=== PATIENT | female | born 1970 | race Caucasian/White ===

== ENCOUNTER 2017-10-10 17:07 | Observation (INO) ==
[2017-10-10] MEDS ORDERED: Sodium Chloride 0.9% 1,000 ML PRIMARY IV ONE (17:15)
[2017-10-10 17:43] LABS: VENOUS PH 7.37 (7.32-7.42)
[2017-10-10 17:58] LABS: BASOPHILS # (AUTO) 0.01 10*3/UL; BASOPHILS % (AUTO) 0.1 % (0-1); EOSINOPHILS % (AUTO) 0.9 % (0-8); Hematocrit [HCT] 42.1 % (37.0-47.0); LYMPHOCYTES # (AUTO) 1.11 10*3/uL; MEAN CORPUSCULAR HGB CONC 33.3 g/dL (33-37); MEAN CORPUSCULAR VOLUME 93.3 FL (81-99); MEAN PLATELET VOLUME 11.1 FL (7.4-12.2); MONOCYTES # (AUTO) 0.43 10*3/UL (0.3-0.8); NEUTROPHILS # (AUTO) 9.17 10*3/UL; NEUTROPHILS % (AUTO) 84.7 % (50-80); RED BLOOD COUNT 4.51 10^6/uL (4.20-5.40)
[2017-10-10 18:08] LABS: BLOOD UREA NITROGEN 12 mg/dL (7-22); BUN/CREATININE RATIO 17.14 (6-20); PLATELET MORPHOLOGY COMMENT NORMAL MORPHOLOGY (NORM); RBC MORPHOLOGY COMMENT NORMAL MORPHOLOGY (NORM); SERUM ALBUMIN 3.7 g/dL (3.5-4.8); WBC MORPHOLOGY COMMENT NORMAL MORPHOLOGY (NORM)
--- NOTE | 2017-10-10 18:15 | EKG ---
[address] [address] Measurements Intervals [place] Rate: 97 P: 39 AL: 164 QRS: 11 QRSD: 98 T: 33 QT: 344 QTc: 398 Interpretive Statements SINUS RHYTHM No previous ECG available for comparison Electronically Signed On 10-11-17 15:33:27 MDT by Luke Sparks [email or web address]
--- NOTE | 2017-10-10 19:56 | DI ---
AP CHEST X-RAY, 10/10/2017 5:17 PM : Clinical History: Dyspnea. Previous Exam: None at this facility. There is no acute soft tissue or bony abnormality. Heart size is normal. Lungs are clear. Mediastinal structures are normal. There are no pulmonary nodules. Reading: Normal chest x-ray.
[2017-10-10] MEDS ORDERED: ACETAMINOPHEN 325 MG TABLET PO PRN (20:51)
[2017-10-10] MEDS ORDERED: LIDOCAINE W/ SODIUM BICARB 0.5 ML SYR SUBD PRN (20:51)
[2017-10-10] MEDS ORDERED: CALCIUM CARBONATE 500 MG (TUMS) CHEWABLE TABLET PO PRN (20:51)
[2017-10-10] MEDS ORDERED: Senna/Docusate Tab 1 TAB TAB PO PRN (20:51)
[2017-10-10] MEDS ORDERED: DOCUSATE 100 MG CAPSULE PO PRN (20:51)
[2017-10-10] MEDS ORDERED: LIDOCAINE HCL 2 % 10 ML JELLY URO-JECT TOPICAL PRN (20:51)
[2017-10-10] MEDS ORDERED: ONDANSETRON 4 MG/2 ML VIAL IVP PRN (20:51)
[2017-10-10] MEDS ORDERED: FLUTICASONE/SALMETEROL 100/50 UD INHALER INH SCH (21:00)
[2017-10-10] MEDS ORDERED: BENZTROPINE MESYLATE 0.5 MG PO SCH (21:00)
[2017-10-10] MEDS ORDERED: PRAZOSIN HCL 4 MG PO SCH (21:00)
[2017-10-10] MEDS ORDERED: INSULIN GLARGINE HUM REC ANLOG 22 UNIT SUBCUT SCH (21:00)
[2017-10-10] MEDS ORDERED: POLYETHYLENE GLYCOL 3350 17 GM POWDER PO PRN (21:45)
[2017-10-10] MEDS ORDERED: DEXTROSE 31 GM GEL PO PRN (21:48)
[2017-10-10] MEDS ORDERED: Insulin Sliding Scale Protocol SUBCUT PRN (21:48)
[2017-10-10] MEDS ORDERED: DEXTROSE 50%-WATER SYRINGE 50 ML SYRINGE IVP PRN (21:48)
[2017-10-10] MEDS ORDERED: Glucagon Inj Vial 1 MG/ML VIAL IM PRN (21:48)
--- NOTE | 2017-10-10 21:51 | PDOC ---
HPI - History of Present Illness Date of Service: 10/10/17 Time of Service: 21:46 Chief Complaint: lightheaded and sleepy History of Present Illness: This a 46-year-old female with multiple psychiatric issues as well as seizures and diabetes mellitus who is on insulin, who is living in a custodial management by [email or web address]. She was just recently seen by her neurologist , Dr. Olivares, in [place], [place], and her seizure medications were adjusted and she was given both clonazepam and Trileptal as new drugs to manage her seizures. She started this 2 days ago, and apparently became very dizzy and lightheaded by her description, more sleepy, and tired. Given the tired appearance of the patient the custodial sent her to the emergency room for evaluation. She was found to be hypoxic in addition to being tired and somewhat somnolent. By the time she was admitted for observation, she was alert , oriented, and provided a complete history of present illness. Aside from the start of these new medications, there were no exacerbating factors. We discussed whether or not to go off of one of them and just titrate up slowly to see if he could avoid oversedation, and she felt that stopping the clonazepam would be in her best interest at this time. She is not had any further breakthrough seizures since starting the clonazepam and Trileptal. She denied any fevers, chills, but does complain of nausea and vomiting although it has resolved tonight and she was able to hold a snack down in the emergency room. A chest x-ray was done and it was negative for any pneumonia or infection. By the time the patient was admitted, her hypoxia had resolved and she was satting 93-99% on room air. Past Medical History Medical History: 1. Multiple psychiatric problems, no right specified. 2. Seizure disorder. 3. Diabetes mellitus, insulin-dependent. 4. Hypertension. 5. Tobacco abuse. 6. Chronic pain syndrome related to back pain Surgical History: 1. Knee surgery. 2. Ankle surgery 4. 3. Back surgery 3 Pertinent Family History: She states that she has a family history of diabetes and cancer Past Social History: Smokes. Does not drink alcohol. Currently living in a custodial here managed by [email or web address] with a long-term plan of moving back to [place] near her brother. She has 1 child that is described as healthy. Tobacco Use: Current Every Day Smoker In the Past 12 Months, Have Used or Abuse Any of the Following Substance: None Alcohol Use: None Medication / Allergies Home Medications: Home Medications 3 Medication Instructions Recorded Confirmed Type Gabapentin 600 mg PO BID 09/20/17 10/10/17 History Ibuprofen 800 mg PO TID PRN 09/20/17 10/10/17 History Insulin Aspart [Novolog] 4 unit SQ QAM 09/20/17 10/10/17 History Magnesium Oxide [Magnesium] 400 mg PO DAILY 09/20/17 10/10/17 History Pantoprazole Sodium [Protonix] 40 mg PO BID 09/20/17 10/10/17 History levETIRAcetam Tab [Keppra Tab] 750 mg PO BID 09/20/17 10/10/17 History benztropine 0.5 mg tablet 0.5 mg PO BID 10/04/17 10/10/17 History buprenorphine HCl 2 mg sublingual 4 mg SL TID tab 10/04/17 10/10/17 History tablet clozapine 150 mg disintegrating 200 mg PO BID tab 10/04/17 10/10/17 History tablet docusate sodium 100 mg capsule 100 mg PO QDAY 10/04/17 10/04/17 History duloxetine 30 mg capsule,delayed 30 mg PO BID 10/04/17 10/04/17 History release glucagon (human recombinant) 1 1 mg IM ONCE 10/04/17 10/10/17 History mg/mL solution for injection insulin glargine (U-100) 100 22 unit SUBCUT BID 10/04/17 10/10/17 History unit/mL subcutaneous cartridge lidocaine 5 % topical patch 1 patch TOPICAL Q24H 10/04/17 10/10/17 History multivitamin tablet 1 tab PO QAM 10/04/17 10/10/17 History ondansetron HCl 8 mg tablet 8 mg PO BID PRN tab 10/04/17 10/10/17 History polyethylene glycol 3350 17 17 g PO PRN PRN g 10/04/17 10/10/17 History gram/dose oral powder prazosin 2 mg capsule 4 mg PO BEDTIME cap 10/04/17 10/10/17 History sennosides 8.6 mg-docusate sodium 2 tab PO QHS PRN 10/04/17 10/10/17 History 50 mg tablet sucralfate 1 gram tablet 1 g PO QID 28 Days #112 tab 10/04/17 10/10/17 Rx Oxcarbazepine [Trileptal] 300 mg PO DAILY 10/10/17 10/10/17 History Allergies/Adverse Reactions: Allergies 3 Allergy/AdvReac Type Severity Reaction Status Date / Time ketorolac [From Toradol] Allergy Intermediate SHORTNESS Verified 10/10/17 18:01 OF BREATH prochlorperazine Allergy Intermediate ITCHING Verified 10/10/17 18:01 [From Compazine] Penicillins Allergy Unknown UNKNOWN Verified 10/10/17 18:01 Review of Systems - Review of Systems All Systems: Reviewed & No Additional Complaints Except as Stated (I did a 12 point review systems and it was negative other than that discussed in history present illness with exceptions noted below.) - Musculoskeletal Musculoskeletal: REPORTS: Back Pain (Chronic) - Neurological Neurologic: REPORTS: Headache (States that she has migraine headaches) - Psychiatric Psychiatric: REPORTS: Other (His chronic psychiatric problems and states that she is looking forward to reestablishing living on her own and independently and then moving to [place], [place], to be closer to her brother.) Exam - Vitals Vital Signs: Vital Signs Temperature 96.8 F Temperature Source Temporal Artery Scan Pulse Rate [Pulse Oximeter] 95 Respiratory Rate 16 Blood Pressure [Right Arm] 118/69 Blood Pressure [Left Arm] 99/73 Pulse Ox 97 Oxygen Delivery Method Room Air Height 5 ft 7 in Weight 184 lb 8 oz - General General Appearance: No Acute Distress, Cooperative - Head Head Exam: Normal Inspection, Normocephalic, Atraumatic - Eye Eye Exam: POSITIVE: No Scleral Icterus - ENT ENT Exam: POSITIVE: Mucous Membranes Moist Additonal ENT Exam Details: Patient does have some features consistent with possible tardive dyskinesia with some tongue movements and mouth movements - Neck Neck Exam: Normal Inspection, No Tenderness, No Lymphadenopathy, No Thyromegaly , JVP is not Raised - Respiratory Respiratory Exam: POSITIVE: Clear to Auscultation - Bilaterally, Breathing Non Labored, Normal to Percussion and Palpation - Cardiovascular Cardiovascular Exam: POSITIVE: RRR, No Murmur, No Clicks, No Gallops, No Rubs, No JVD - GI/Abdominal GI/Abdominal Exam: POSITIVE: Normal Bowel Sounds, Non Tender, Non Distended, Soft - Rectal Rectal Exam: POSITIVE: Deferred - External Exam: POSITIVE: Deferred Exam: POSITIVE: Deferred - Extremities Extremities Exam: POSITIVE: No Clubbing Present, No Edema Present, No Cyanosis Present - Neurological Neurological Exam: POSITIVE: Alert, Oriented x 3, No Facial Droop, Speech Intact / Clear, Moves All Extremities Equally - Psychiatric Psychiatric Exam: POSITIVE: Anxious - Integumentary Integumentary Exam: POSITIVE: Normal Color, Warm, Dry, Intact - Central Line Examination Central Line Present on Admission: No Results - Labs CBC and BMP: 10/10/17 17:45 10/10/17 17:45 Additional Lab Results: Laboratory Results 10/10/17 10/10/17 10/10/17 Range/Units 17:34 17:45 17:45 WBC (4.8-10.8) 10^3/uL RBC (4.20-5.40) 10^6/uL Hgb (12.0-16.0) g/dL Hct (37.0-47.0) % MCV (81-99) FL MCH (27-31) PG MCHC (33-37) g/dL RDW Std Deviation (39-50) fL RDW Coeff of Lalita (11.5-14.5) % Plt Count (140-350) 10*3/uL MPV (7.4-12.2) FL Immature Gran % (Auto) (0-5) % Neut % (Auto) (50-80) % Lymph % (Auto) (10-50) % Mccone % (Auto) (5-15) % Eos % (Auto) (0-8) % Baso % (Auto) (0-1) % Immature Gran # (Auto) 10*3/UL Neut # (Auto) 10*3/UL Lymph # (Auto) 10*3/uL Mccone # (Auto) (0.3-0.8) 10*3/UL Eos # (Auto) 10*3/UL Baso # (Auto) 10*3/UL WBC Morphology Comment (NORM) Plt Morphology Comment (NORM) RBC Morph Comment (NORM) D-Dimer (0.00-0.59) mg/L VBG pH 7.37 (7.32-7.42) VBG pCO2 47 (45-55) mmHg VBG HCO3 27 H (22-26) mmol/L VBG Base Excess 2 (-2-2) MMOL/L Sodium (135-145) meq/L Potassium (3.8-5.2) meq/L Chloride (98-112) meq/L Carbon Dioxide (23-33) meq/L Anion Gap (5-20) BUN (7-22) mg/dL Creatinine (0.50-1.20) mg/dL Estimated GFR (>60 ml/min/1.73m(2)) BUN/Creatinine Ratio (6-20) Glucose (78-110) mg/dL Calculated Osmolality (267-292) mOsm/kg Lactic Acid (0.70-2.10) MMOL/L Calcium (8.7-10.7) mg/dL Magnesium 1.6 (1.6-2.4) mg/dL Total Bilirubin (0.3-1.2) mg/dL AST (8-39) IU/L ALT (9-52) IU/L Alkaline Phosphatase (38-126) IU/L Troponin I < 0.012 (< 0.040) ng/mL C-Reactive Protein 5.1 H (0.0-0.9) mg/dL NT-Pro-B Natriuret Pep 317 H (0-125) PG/ML Total Protein (6.1-8.0) g/dL Albumin (3.5-4.8) g/dL Globulin (2.50-4.10) g/dL Albumin/Globulin Ratio (1.3-2.0) mg/g Serum Alcohol < 10 (0-10) mg/dL 10/10/17 10/10/17 10/10/17 Range/Units 17:45 17:45 17:45 WBC 10.83 H (4.8-10.8) 10^3/uL RBC 4.51 (4.20-5.40) 10^6/uL Hgb 14.0 (12.0-16.0) g/dL Hct 42.1 (37.0-47.0) % MCV 93.3 (81-99) FL MCH 31.0 (27-31) PG MCHC 33.3 (33-37) g/dL RDW Std Deviation 46.7 (39-50) fL RDW Coeff of Lalita 14.1 (11.5-14.5) % Plt Count 169 (140-350) 10*3/uL MPV 11.1 (7.4-12.2) FL Immature Gran % (Auto) 0.1 (0-5) % Neut % (Auto) 84.7 H (50-80) % Lymph % (Auto) 10.2 (10-50) % Mccone % (Auto) 4.0 L (5-15) % Eos % (Auto) 0.9 (0-8) % Baso % (Auto) 0.1 (0-1) % Immature Gran # (Auto) 0.01 10*3/UL Neut # (Auto) 9.17 10*3/UL Lymph # (Auto) 1.11 10*3/uL Mccone # (Auto) 0.43 (0.3-0.8) 10*3/UL Eos # (Auto) 0.10 10*3/UL Baso # (Auto) 0.01 10*3/UL WBC Morphology Comment Normal morphology (NORM) Plt Morphology Comment Normal morphology (NORM) RBC Morph Comment Normal morphology (NORM) D-Dimer 0.37 (0.00-0.59) mg/L VBG pH (7.32-7.42) VBG pCO2 (45-55) mmHg VBG HCO3 (22-26) mmol/L VBG Base Excess (-2-2) MMOL/L Sodium 141 (135-145) meq/L Potassium 4.0 (3.8-5.2) meq/L Chloride 105 (98-112) meq/L Carbon Dioxide 27 (23-33) meq/L Anion Gap 9 (5-20) BUN 12 (7-22) mg/dL Creatinine 0.7 (0.50-1.20) mg/dL Estimated GFR > 60 (>60 ml/min/1.73m(2)) BUN/Creatinine Ratio 17.14 (6-20) Glucose 84 (78-110) mg/dL Calculated Osmolality 290.0 (267-292) mOsm/kg Lactic Acid (0.70-2.10) MMOL/L Calcium 8.8 (8.7-10.7) mg/dL Magnesium (1.6-2.4) mg/dL Total Bilirubin 0.3 (0.3-1.2) mg/dL AST 22 (8-39) IU/L ALT 28 (9-52) IU/L Alkaline Phosphatase 128 H (38-126) IU/L Troponin I (< 0.040) ng/mL C-Reactive Protein (0.0-0.9) mg/dL NT-Pro-B Natriuret Pep (0-125) PG/ML Total Protein 6.5 (6.1-8.0) g/dL Albumin 3.7 (3.5-4.8) g/dL Globulin 2.9 (2.50-4.10) g/dL Albumin/Globulin Ratio 1.20 L (1.3-2.0) mg/g Serum Alcohol (0-10) mg/dL 10/10/17 Range/Units 17:45 WBC (4.8-10.8) 10^3/uL RBC (4.20-5.40) 10^6/uL Hgb (12.0-16.0) g/dL Hct (37.0-47.0) % MCV (81-99) FL MCH (27-31) PG MCHC (33-37) g/dL RDW Std Deviation (39-50) fL RDW Coeff of Laliat (11.5-14.5) % Plt Count (140-350) 10*3/uL MPV (7.4-12.2) FL Immature Gran % (Auto) (0-5) % Neut % (Auto) (50-80) % Lymph % (Auto) (10-50) % Mccone % (Auto) (5-15) % Eos % (Auto) (0-8) % Baso % (Auto) (0-1) % Immature Gran # (Auto) 10*3/UL Neut # (Auto) 10*3/UL Lymph # (Auto) 10*3/uL Mccone # (Auto) (0.3-0.8) 10*3/UL Eos # (Auto) 10*3/UL Baso # (Auto) 10*3/UL WBC Morphology Comment (NORM) Plt Morphology Comment (NORM) RBC Morph Comment (NORM) D-Dimer (0.00-0.59) mg/L VBG pH (7.32-7.42) VBG pCO2 (45-55) mmHg VBG HCO3 (22-26) mmol/L VBG Base Excess (-2-2) MMOL/L Sodium (135-145) meq/L Potassium (3.8-5.2) meq/L Chloride (98-112) meq/L Carbon Dioxide (23-33) meq/L Anion Gap (5-20) BUN (7-22) mg/dL Creatinine (0.50-1.20) mg/dL Estimated GFR (>60 ml/min/1.73m(2)) BUN/Creatinine Ratio (6-20) Glucose (78-110) mg/dL Calculated Osmolality (267-292) mOsm/kg Lactic Acid 0.7 (0.70-2.10) MMOL/L Calcium (8.7-10.7) mg/dL Magnesium (1.6-2.4) mg/dL Total Bilirubin (0.3-1.2) mg/dL AST (8-39) IU/L ALT (9-52) IU/L Alkaline Phosphatase (38-126) IU/L Troponin I (< 0.040) ng/mL C-Reactive Protein (0.0-0.9) mg/dL NT-Pro-B Natriuret Pep (0-125) PG/ML Total Protein (6.1-8.0) g/dL Albumin (3.5-4.8) g/dL Globulin (2.50-4.10) g/dL Albumin/Globulin Ratio (1.3-2.0) mg/g Serum Alcohol (0-10) mg/dL - EKG Data -: EKG Interpreted by Me Rate: Normal EKG Shows Normal: Sinus Rhythm - Imaging Status: Image Reviewed by Me (Chest x-ray is negative on my view) Assessment and Plan - Patient Problems (1) Hypoxia Current Visit: Yes Status: Acute Code(s): R09.02 - Hypoxemia (2) Schizophrenia Current Visit: Yes Status: Chronic Code(s): F20.9 - Schizophrenia, unspecified Qualifiers: Schizophrenia type: unspecified Qualified Code(s): F20.9 - Schizophrenia, unspecified (3) Tobacco dependence Current Visit: Yes Status: Chronic Code(s): F17.200 - Nicotine dependence, unspecified, uncomplicated (4) Type 1 diabetes Current Visit: Yes Status: Chronic Code(s): E10.9 - Type 1 diabetes mellitus without complications Qualifiers: Diabetes mellitus complication status: without complication Qualified Code( s): E10.9 - Type 1 diabetes mellitus without complications (5) Seizure disorder Current Visit: Yes Status: Chronic Code(s): G40.909 - Epilepsy, unspecified , not intractable, without status epilepticus - Assessment / Plan Additional Assessment/Plan Details: Admit the patient for observation Monitor oxygen saturation and with telemetry Stop clonazepam and continue with Trileptal at this time. Patient has psychiatric follow-up on Sunday as my understanding. The patient is alert and oriented without the symptoms in the morning, I think we will discharge back to her custodial setting. Check comprehensive Metabolic panel in a.m. Given that we will not be able to provide buprenorphine tonight, I will go ahead and give hydrocodone for pain overnight but we will have the patient resume buprenorphine as soon as she can. It is not on formulary here. I discussed the above plan and the patient agreed. Currently, the patient is not hypoxic. I don't know if this was a result of clonazepam or polypharmacy. Again we'll monitor oxygen saturation. Rest criteria score for pulmonary embolism is 0, she is low risk. I don't think proceeding with a CT scan at this point will make sense. If she develops recurrent hypoxia, we need to reconsider. Also with her history of smoking, she likely may have some underlying COPD which can be explored on an outpatient basis with office spirometry.
[2017-10-10] MEDS ORDERED: Insulin Glargine SoloStar Inj 100 UNIT/ML INSULN.PEN SUBCUT SCH (22:00)
[2017-10-10] MEDS ORDERED: NICOTINE 21 MG /DAY PATCH TRANSDERM ONE (22:01)
[2017-10-10] MEDS: BUPRENORPHINE HCL 4 MG SL SCH (22:11)
[2017-10-10] MEDS: HYDROcodone-APAP 7.5 MG-325 MG TABLET PO PRN (22:17)
[2017-10-10] MEDS: LevETIRAcetam Tab 500 MG TABLET PO SCH (22:17)
[2017-10-10] MEDS: DULOXETINE 30 MG CAPSULE PO SCH (22:18)
[2017-10-10] MEDS: GABAPENTIN 300 MG CAPSULE PO SCH (22:18)
[2017-10-10] MEDS: PANTOPRAZOLE 40 MG TABLET PO SCH (22:18)
[2017-10-10] MEDS: BENZTROPINE 1 MG TABLET PO SCH (22:18)
[2017-10-10] MEDS: D5-1/2NS + 20mEq KCL 1,000 ML PRIMARY IV SCH (22:20)
--- NOTE | 2017-10-10 23:30 | PDOC ---
General Adult HPI - General Chief Complaint: Dyspnea Stated Complaint: low oxygen Date Seen by Provider: 10/10/17 Time Seen by Provider: 17:10 Source: POSITIVE: Patient Exam Limitations: POSITIVE: No limitations Nurse's Notes Reviewed & Considered: Yes - History of Present Illness Initial Comment: The patient is a 46-year-old female who is brought to the emergency department because of increased lethargy and confusion, decreased appetite and complaints of general malaise. She has a history of seizure disorder as well as multiple psychiatric diagnoses. She was apparently recently hospitalized at for an extended period of time. She is currently living at the correction managed by [facility] and has been there for approximately 3 weeks. She has a history of chronic back pain for which she takes Subutex and Neurontin. She also had some questionable seizure activity several weeks ago. She followed up with her neurologist in [place] earlier this week. She was apparently started on Trileptal in addition to the Keppra and Neurontin that she already takes. In addition she was given a prescription for clonazepam as needed for seizure activity which she has taken 2 doses according to her account. Since starting on the new medication she has had decreased appetite in general malaise. She states she feels like she is having a hard time adjusting to the medication. On arrival here her oxygen saturations were in the low 80s and she was placed on O2 per nasal cannula to bring her oxygen levels up into the mid-90s. She states that she has had a mild cough for the past 3 days which is occasionally productive. She does smoke approximately 1-1-1/2 packs of cigarettes per day. She also reports some vague chest pain in the left chest for several days. She denies any pain or swelling in her extremities other than her chronic right leg pain related to her back. She is a diabetic and takes insulin. Her blood sugar this morning was 118. She has been diabetic since the age of 19. Have you received a tetanus shot in the past 10 years?: Unknown - Patient Home Medications Home Medications: Home Medications Gabapentin 600 mg PO BID 09/20/17 Ibuprofen 800 mg PO TID PRN 09/20/17 Insulin Aspart [Novolog] 4 unit SQ QAM 09/20/17 Magnesium Oxide [Magnesium] 400 mg PO DAILY 09/20/17 Pantoprazole Sodium [Protonix] 40 mg PO BID 09/20/17 levETIRAcetam Tab [Keppra Tab] 750 mg PO BID 09/20/17 benztropine 0.5 mg tablet 0.5 mg PO BID 10/04/17 buprenorphine HCl 2 mg sublingual tablet 4 mg SL TID tab 10/04/17 clozapine 150 mg disintegrating tablet 200 mg PO BID tab 10/04/17 docusate sodium 100 mg capsule 100 mg PO QDAY 10/04/17 duloxetine 30 mg capsule,delayed release 30 mg PO BID 10/04/17 glucagon (human recombinant) 1 mg/mL solution for injection 1 mg IM ONCE insulin glargine (U-100) 100 unit/mL subcutaneous cartridge 22 unit SUBCUT BID 10/04/17 lidocaine 5 % topical patch 1 patch TOPICAL Q24H 10/04/17 multivitamin tablet 1 tab PO QAM 10/04/17 ondansetron HCl 8 mg tablet 8 mg PO BID PRN tab 10/04/17 polyethylene glycol 3350 17 gram/dose oral powder 17 g PO PRN PRN g 10/04/17 prazosin 2 mg capsule 4 mg PO BEDTIME cap 10/04/17 sennosides 8.6 mg-docusate sodium 50 mg tablet 2 tab PO QHS PRN 10/04/17 sucralfate 1 gram tablet 1 g PO QID 28 Days #112 tab 10/04/17 Oxcarbazepine [Trileptal] 300 mg PO DAILY 10/10/17 - Patient Allergies Allergies/Adverse Reactions: Allergies 3 Allergy/AdvReac Type Severity Reaction Status Date / Time ketorolac [From Toradol] Allergy Intermediate SHORTNESS Verified 10/10/17 18:01 OF BREATH prochlorperazine Allergy Intermediate ITCHING Verified 10/10/17 18:01 [From Compazine] Penicillins Allergy Unknown UNKNOWN Verified 10/10/17 18:01 Past Medical History - heen HEENT History: Denies History Cardiovascular History: Denies History Respiratory History: Pneumonia Gastrointestinal History: Denies History Genitourinary History: Denies History Endocrine History: Type 1 Diabetes Musculoskeletal History: Fibromyalgia, Back Injury Prosthesis or Implant: No Additional Musculoskeletal History: degenerative disk disease Neurological History: Seizures Blood Disorders: Denies History Psychiatric History: Depression, Anxiety Disorders History of Sexually Transmitted Diseases: No Female Reproductive History: Denies History Obstetrical History: Denies History Cancer History: Denies History In Past Year Been Physically Harmed or Verbally Threatened: No History of MDRO: Yes History of Other Communicable Diseases: No Tobacco Use: Current Every Day Smoker In the Past 12 Months, Have Used or Abuse Any Substance: None Previous Surgical History: Yes Type / Date of Surgery: 3 back surgeries, hyst, right knee, right ankle times 4 Significant Family History: No pertinent family hx Past Medical History Reviewed: Reviewed - No Changes ROS - Limitations ROS Limitations: No Limitations Constitution: DENIES: Chills, Fever Cardiovascular: REPORTS: Denies Cardiac Symptoms Respiratory: REPORTS: Denies Resp Symptoms Neurological: DENIES: Headache Gastrointestinal: REPORTS: Nausea, Other (Decreased appetite). DENIES: Vomitting Endocrine: DENIES: Elevated Glucose, Low Glucose, Polydypsia Musculoskeletal: REPORTS: Denies MS Symptoms Genitourinary: REPORTS: Denies Symptoms Eyes: REPORTS: Denies Symptoms ENT: REPORTS: Denies Symptoms Skin: DENIES: Rash General Adult Exam - General Appearance General Appearance: POSITIVE: Other (The patient is awake and answers questions however she is somewhat slow to respond and her speech is mildly slurred) - HEENT HEENT: POSITIVE: Head Inspection Nml, Eyes Inspection Nml, Ears Inspection Nml, Nose Inspection Nml, Pharynx Inspect. Nml, PERRL, EOMI - Neck Neck: POSITIVE: Normal Inspection. NEGATIVE: Lymphadenopathy - Respiratory Respiratory: POSITIVE: No Respiratory Distress, Breath Sounds Normal - Cardiovascular Cardiovascular: POSITIVE: Regular Rate & Rhythm, No Murmur Peripheral Pulses: Dorsalis-pedis (R): 2+, Dorsalis-pedis (L): 2+ - Abdomen Abdomen: Soft: (All Quadrants), Denies Tenderness: (All Quadrants), No Distention: (All Quadrants) - Back Back: POSITIVE: Normal Inspection - Skin Skin: POSITIVE: Normal Color, No Rash - Extremities Extremity: Normal ROM: (All Extremities), Normal Inspection: (All Extremities) - Neurological / Psychological Neurological: POSITIVE: Oriented X3, 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 Lab Results Reviewed by Me: Yes Lab Results:: Laboratory Results 3 10/10/17 10/10/17 10/10/17 17:34 17:45 17:45 WBC RBC Hgb Hct MCV MCH MCHC RDW Std Deviation RDW Coeff of Lalita Plt Count MPV Immature Gran % (Auto) Neut % (Auto) Lymph % (Auto) [place] % (Auto) Eos % (Auto) Baso % (Auto) Immature Gran # (Auto) Neut # (Auto) Lymph # (Auto) [place] # (Auto) Eos # (Auto) Baso # (Auto) WBC Morphology Comment Plt Morphology Comment RBC Morph Comment D-Dimer VBG pH 7.37 VBG pCO2 47 VBG HCO3 27 H VBG Base Excess 2 Sodium Potassium Chloride Carbon Dioxide Anion Gap BUN Creatinine Estimated GFR BUN/Creatinine Ratio Glucose Calculated Osmolality Lactic Acid Calcium Magnesium 1.6 Total Bilirubin AST ALT Alkaline Phosphatase Troponin I < 0.012 C-Reactive Protein 5.1 H NT-Pro-B Natriuret Pep 317 H Total Protein Albumin Globulin Albumin/Globulin Ratio Serum Alcohol < 10 3 10/10/17 10/10/17 10/10/17 17:45 17:45 17:45 WBC 10.83 H RBC 4.51 Hgb 14.0 Hct 42.1 MCV 93.3 MCH 31.0 MCHC 33.3 RDW Std Deviation 46.7 RDW Coeff of Lalita 14.1 Plt Count 169 MPV 11.1 Immature Gran % (Auto) 0.1 Neut % (Auto) 84.7 H Lymph % (Auto) 10.2 [place] % (Auto) 4.0 L Eos % (Auto) 0.9 Baso % (Auto) 0.1 Immature Gran # (Auto) 0.01 Neut # (Auto) 9.17 Lymph # (Auto) 1.11 [place] # (Auto) 0.43 Eos # (Auto) 0.10 Baso # (Auto) 0.01 WBC Morphology Comment Normal morphology Plt Morphology Comment Normal morphology RBC Morph Comment Normal morphology D-Dimer 0.37 VBG pH VBG pCO2 VBG HCO3 VBG Base Excess Sodium 141 Potassium 4.0 Chloride 105 Carbon Dioxide 27 Anion Gap 9 BUN 12 Creatinine 0.7 Estimated GFR > 60 BUN/Creatinine Ratio 17.14 Glucose 84 Calculated Osmolality 290.0 Lactic Acid Calcium 8.8 Magnesium Total Bilirubin 0.3 AST 22 ALT 28 Alkaline Phosphatase 128 H Troponin I C-Reactive Protein NT-Pro-B Natriuret Pep Total Protein 6.5 Albumin 3.7 Globulin 2.9 Albumin/Globulin Ratio 1.20 L Serum Alcohol 3 10/10/17 17:45 WBC RBC Hgb Hct MCV MCH MCHC RDW Std Deviation RDW Coeff of Lalita Plt Count MPV Immature Gran % (Auto) Neut % (Auto) Lymph % (Auto) [place] % (Auto) Eos % (Auto) Baso % (Auto) Immature Gran # (Auto) Neut # (Auto) Lymph # (Auto) [place] # (Auto) Eos # (Auto) Baso # (Auto) WBC Morphology Comment Plt Morphology Comment RBC Morph Comment D-Dimer VBG pH VBG pCO2 VBG HCO3 VBG Base Excess Sodium Potassium Chloride Carbon Dioxide Anion Gap BUN Creatinine Estimated GFR BUN/Creatinine Ratio Glucose Calculated Osmolality Lactic Acid 0.7 Calcium Magnesium Total Bilirubin AST ALT Alkaline Phosphatase Troponin I C-Reactive Protein NT-Pro-B Natriuret Pep Total Protein Albumin Globulin Albumin/Globulin Ratio Serum Alcohol CBC and BMP: 10/10/17 17:45 10/11/17 04:31 EKG Interpreted/Reviewed By Me:: Yes EKG Interpretation:: POSITIVE: Normal Sinus Rhythm, Normal Rate, Normal QRS, Normal ST/T - Patient's Progress MDM / ED Course: The patient was significantly hypoxic on arrival with oxygen saturations in the low 80s. She was placed on O2 per nasal cannula which brought her oxygen saturations up into the mid-90s. Initial venous blood gases unremarkable with normal pH. EKG shows normal sinus rhythm with no acute changes. Chest x-ray is normal per radiologist. The remainder of her blood work is essentially unremarkable with a normal d-dimer, normal troponin. At this point her symptoms and low oxygenation appears to be related to her medications. She is on multiple medications that cause sedation which is likely the cause of her current presentation. Decision was made to admit the patient for further observation and treatment. Dr. Nunez is agreed to admit the patient and the patient is in agreement with this plan. The patient is scheduled to see the psychiatrist who oversees the correction and the staff states that he plans on reviewing all of her medications. - Consult Counseled: POSITIVE: Patient, RE: DX, RE: Need for F/U Patient Care Time - Estimated PCT Patient Care Time (In Minutes): 40 Vital Signs - Recent Vital Signs Vital Signs: Vital Signs (Last 8 hours) Temp Pulse Pulse Resp BP BP Pulse Ox 10/11/17 05:23 91 10/11/17 04:26 98.1 F 76 18 113/66 96 10/11/17 03:00 77 94 10/11/17 00:27 98.1 F 90 18 115/61 91 10/10/17 23:00 92 - VS Reviewed Vital Signs Reviewed: Yes Discharge Clinical Impression: Hypoxia, Sedated due to medication, Seizure disorder Discharge Disposition: Admit to Observation Condition: Fair
[2017-10-11 05:01] LABS: BLOOD UREA NITROGEN 11 mg/dL (7-22); BUN/CREATININE RATIO 18.33 (6-20); SERUM ALBUMIN 2.9 g/dL (3.5-4.8)
[2017-10-11] MEDS: D5-1/2NS + 20mEq KCL 1,000 ML PRIMARY IV SCH ×2 (06:36→18:38)
[2017-10-11] MEDS: Insulin Lispro Flexpen 300 UNIT/3 ML INSULN.PEN SUBCUT SCH ×2 (07:49→11:42)
[2017-10-11] MEDS: HYDROcodone-APAP 7.5 MG-325 MG TABLET PO PRN (08:02)
[2017-10-11] MEDS ORDERED: DOCUSATE 100 MG CAPSULE PO SCH (09:00)
[2017-10-11] MEDS ORDERED: OXCARBAZEPINE 300 MG PO SCH ×2 (09:00→10:15)
[2017-10-11] MEDS ORDERED: Insulin Glargine SoloStar Inj 100 UNIT/ML INSULN.PEN SUBCUT SCH (09:00)
[2017-10-11] MEDS ORDERED: NICOTINE 21 MG /DAY PATCH TRANSDERM SCH (09:00)
[2017-10-11] MEDS: LevETIRAcetam Tab 500 MG TABLET PO SCH (09:01)
[2017-10-11 09:02] VITALS: TEMP 96.8
[2017-10-11] MEDS: BENZTROPINE 1 MG TABLET PO SCH (09:02)
[2017-10-11] MEDS: GABAPENTIN 300 MG CAPSULE PO SCH (09:02)
[2017-10-11] MEDS: DULOXETINE 30 MG CAPSULE PO SCH (09:02)
[2017-10-11] MEDS: PANTOPRAZOLE 40 MG TABLET PO SCH (09:02)
--- NOTE | 2017-10-11 09:10 | DI ---
GALLBLADDER AND LIVER ULTRASOUND, 10/11/2017 7:00 AM: Clinical History: Nausea and vomiting. Previous Exam: None at this facility. Technique: Scans are performed through the right upper quadrant in multiple projections. The patient was rolled from side to side and the gallbladder was balloted with the probe to facilitate visualizat ion of small gallstones. The gallbladder is only moderately well distended but has a normal wall thickness. There are no galls tones. The common bile duct measures 4 mm. The pancreas is visualized from the head to the body and i s normal. There is hepatomegaly with increased echogenicity and decreased through transmission indica ting diffuse fatty infiltration. The right kidney, IVC, and aorta are normal. Readin. The gallbladder is only moderately well distended but is otherwise normal. There is no Hair's s ign. 2. Hepatomegaly with fatty infiltration. 3. Normal right kidney, IVC, aorta, and visualized portions of the pancreas.
[2017-10-11] MEDS: BUPRENORPHINE HCL 4 MG SL SCH (09:17)
[2017-10-11] MEDS ORDERED: OXCARBAZEPINE 600 MG PO SCH (10:30)
[2017-10-11 11:35] VITALS: BP 116/71; RESP 16; O2SAT 94
--- NOTE | 2017-10-11 13:38 | DCSUMMARY ---
Hospitalization Summary Admit Date: 10/10/2017 Discharge Date: 10/11/17 Primary Diagnosis:: altered mental status, resolved. Hospital Course: This is a very pleasant 46-year-old female with several psychiatric issues and seizure disorder, who was placed on Trileptal and clonazepam recently. The patient presented with altered mental status and was also noted to be somnolent and hypoxic. Chest x-ray was negative for any infection. I hypoxia resolved very quickly as stated altered mental status with admission. The patient described being very sleepy throughout the day and she was observed overnight with no evidence of any problems on her telemetry monitoring. Her hypoxia resolves when she is awake and she does have sleep apnea by history but cannot tolerate CPAP device so I think her hypoxia is related to obstruction. We discussed with the patient options for discontinuing clonazepam and is starting Trileptal and continue to titrate that per neurology instructions. I think this would make the most sense as perhaps the clonazepam was just too sedating. Patient was agreeable to this. She has no other complaints of chest pain, shortness breath, nausea or vomiting and would like to go home. In terms of the patient's nausea and vomiting, she did not have any nausea and vomiting here. I did get an ultrasound as it was planned on an outpatient basis anyway and we did find a fatty liver. The gallbladder appeared normal. If nausea and vomiting persists I recommended the patient get a HIDA scan as an outpatient. Assessment and Plan: 1. As per discharge assessments noted 2. Disposition: Patient is discharged home. 3. Condition on discharge, stable and improved. 4. Diet: regular diet/diabetic diet 5. Activities: resume normal activities, advised to quit smoking 6. Follow-Up: 1. See Dr. West in 1 week 2. 7. Medications at the Time of Discharge: Home Medications 3 Medication Instructions Recorded Confirmed Type Gabapentin 600 mg PO BID 09/20/17 10/10/17 History Ibuprofen 800 mg PO TID PRN 09/20/17 10/10/17 History Insulin Aspart [Novolog] 4 unit SQ QAM 09/20/17 10/10/17 History Magnesium Oxide [Magnesium] 400 mg PO DAILY 09/20/17 10/10/17 History levETIRAcetam Tab [Keppra Tab] 750 mg PO BID 09/20/17 10/10/17 History benztropine 0.5 mg tablet 0.5 mg PO BID 10/04/17 10/10/17 History buprenorphine HCl 2 mg sublingual 4 mg SL TID tab 10/04/17 10/10/17 History tablet clozapine 150 mg disintegrating 200 mg PO BID tab 10/04/17 10/10/17 History tablet docusate sodium 100 mg capsule 100 mg PO QDAY 10/04/17 10/11/17 History duloxetine 30 mg capsule,delayed 30 mg PO BID 10/04/17 10/11/17 History release glucagon (human recombinant) 1 1 mg IM ONCE 10/04/17 10/10/17 History mg/mL solution for injection insulin glargine (U-100) 100 22 unit SUBCUT BID 10/04/17 10/10/17 History unit/mL subcutaneous cartridge lidocaine 5 % topical patch 1 patch TOPICAL Q24H 10/04/17 10/10/17 History multivitamin tablet 1 tab PO QAM 10/04/17 10/10/17 History ondansetron HCl 8 mg tablet 8 mg PO BID PRN tab 10/04/17 10/10/17 History polyethylene glycol 3350 17 17 g PO PRN PRN g 10/04/17 10/10/17 History gram/dose oral powder prazosin 2 mg capsule 4 mg PO BEDTIME cap 10/04/17 10/10/17 History sennosides 8.6 mg-docusate sodium 2 tab PO QHS PRN 10/04/17 10/10/17 History 50 mg tablet sucralfate 1 gram tablet 1 g PO QID 28 Days #112 tab 10/04/17 10/10/17 Rx Oxcarbazepine [Trileptal] 300 mg PO DAILY 10/10/17 10/10/17 History pantoprazole 40 mg tablet,delayed 40 mg PO BID #90 tab 10/11/17 Rx release Exam - Vitals Vital Signs: Vital Signs Vital Signs - Last Taken Temperature 96.8 F 10/11/17 11:30 Pulse Rate 68 10/11/17 11:30 Respiratory Rate 16 10/11/17 11:30 Blood Pressure 116/71 10/11/17 11:30 Pulse Ox 94 10/11/17 11:30 Height 5 ft 7 in Weight 188 lb 1.6 oz - General General Appearance: No Acute Distress, Cooperative - Head Head Exam: Normal Inspection, Normocephalic, Atraumatic - Eye Eye Exam: POSITIVE: No Scleral Icterus - ENT ENT Exam: POSITIVE: Mucous Membranes Moist - Respiratory Respiratory Exam: POSITIVE: Clear to Auscultation - Bilaterally, Breathing Non Labored - Cardiovascular Cardiovascular Exam: POSITIVE: RRR, No Murmur, No Clicks, No Gallops, No Rubs, No JVD - GI/Abdominal GI/Abdominal Exam: POSITIVE: Normal Bowel Sounds, Non Tender, Non Distended, Soft - Extremities Extremities Exam: POSITIVE: No Clubbing Present, No Edema Present, No Cyanosis Present - Neurological Neurological Exam: POSITIVE: Alert, Oriented x 3, No Facial Droop, Speech Intact / Clear, Moves All Extremities Equally Data Peritnent Studies: Laboratory Results 10/10/17 10/10/17 10/10/17 Range/Units 17:34 17:45 17:45 WBC (4.8-10.8) 10^3/uL RBC (4.20-5.40) 10^6/uL Hgb (12.0-16.0) g/dL Hct (37.0-47.0) % MCV (81-99) FL MCH (27-31) PG MCHC (33-37) g/dL RDW Std Deviation (39-50) fL RDW Coeff of Lalita (11.5-14.5) % Plt Count (140-350) 10*3/uL MPV (7.4-12.2) FL Immature Gran % (Auto) (0-5) % Neut % (Auto) (50-80) % Lymph % (Auto) (10-50) % Tyrrell % (Auto) (5-15) % Eos % (Auto) (0-8) % Baso % (Auto) (0-1) % Immature Gran # (Auto) 10*3/UL Neut # (Auto) 10*3/UL Lymph # (Auto) 10*3/uL Tyrrell # (Auto) (0.3-0.8) 10*3/UL Eos # (Auto) 10*3/UL Baso # (Auto) 10*3/UL WBC Morphology Comment (NORM) Plt Morphology Comment (NORM) RBC Morph Comment (NORM) D-Dimer (0.00-0.59) mg/L VBG pH 7.37 (7.32-7.42) VBG pCO2 47 (45-55) mmHg VBG HCO3 27 H (22-26) mmol/L VBG Base Excess 2 (-2-2) MMOL/L Sodium (135-145) meq/L Potassium (3.8-5.2) meq/L Chloride (98-112) meq/L Carbon Dioxide (23-33) meq/L Anion Gap (5-20) BUN (7-22) mg/dL Creatinine (0.50-1.20) mg/dL Estimated GFR (>60 ml/min/1.73m(2)) BUN/Creatinine Ratio (6-20) Glucose (78-110) mg/dL Calculated Osmolality (267-292) mOsm/kg Lactic Acid (0.70-2.10) MMOL/L Calcium (8.7-10.7) mg/dL Magnesium 1.6 (1.6-2.4) mg/dL Total Bilirubin (0.3-1.2) mg/dL AST (8-39) IU/L ALT (9-52) IU/L Alkaline Phosphatase (38-126) IU/L Troponin I < 0.012 (< 0.040) ng/mL C-Reactive Protein 5.1 H (0.0-0.9) mg/dL NT-Pro-B Natriuret Pep 317 H (0-125) PG/ML Total Protein (6.1-8.0) g/dL Albumin (3.5-4.8) g/dL Globulin (2.50-4.10) g/dL Albumin/Globulin Ratio (1.3-2.0) mg/g Serum Alcohol < 10 (0-10) mg/dL 10/10/17 10/10/17 10/10/17 Range/Units 17:45 17:45 17:45 WBC 10.83 H (4.8-10.8) 10^3/uL RBC 4.51 (4.20-5.40) 10^6/uL Hgb 14.0 (12.0-16.0) g/dL Hct 42.1 (37.0-47.0) % MCV 93.3 (81-99) FL MCH 31.0 (27-31) PG MCHC 33.3 (33-37) g/dL RDW Std Deviation 46.7 (39-50) fL RDW Coeff of Lailta 14.1 (11.5-14.5) % Plt Count 169 (140-350) 10*3/uL MPV 11.1 (7.4-12.2) FL Immature Gran % (Auto) 0.1 (0-5) % Neut % (Auto) 84.7 H (50-80) % Lymph % (Auto) 10.2 (10-50) % Tyrrell % (Auto) 4.0 L (5-15) % Eos % (Auto) 0.9 (0-8) % Baso % (Auto) 0.1 (0-1) % Immature Gran # (Auto) 0.01 10*3/UL Neut # (Auto) 9.17 10*3/UL Lymph # (Auto) 1.11 10*3/uL Tyrrell # (Auto) 0.43 (0.3-0.8) 10*3/UL Eos # (Auto) 0.10 10*3/UL Baso # (Auto) 0.01 10*3/UL WBC Morphology Comment Normal morphology (NORM) Plt Morphology Comment Normal morphology (NORM) RBC Morph Comment Normal morphology (NORM) D-Dimer 0.37 (0.00-0.59) mg/L VBG pH (7.32-7.42) VBG pCO2 (45-55) mmHg VBG HCO3 (22-26) mmol/L VBG Base Excess (-2-2) MMOL/L Sodium 141 (135-145) meq/L Potassium 4.0 (3.8-5.2) meq/L Chloride 105 (98-112) meq/L Carbon Dioxide 27 (23-33) meq/L Anion Gap 9 (5-20) BUN 12 (7-22) mg/dL Creatinine 0.7 (0.50-1.20) mg/dL Estimated GFR > 60 (>60 ml/min/1.73m(2)) BUN/Creatinine Ratio 17.14 (6-20) Glucose 84 (78-110) mg/dL Calculated Osmolality 290.0 (267-292) mOsm/kg Lactic Acid (0.70-2.10) MMOL/L Calcium 8.8 (8.7-10.7) mg/dL Magnesium (1.6-2.4) mg/dL Total Bilirubin 0.3 (0.3-1.2) mg/dL AST 22 (8-39) IU/L ALT 28 (9-52) IU/L Alkaline Phosphatase 128 H (38-126) IU/L Troponin I (< 0.040) ng/mL C-Reactive Protein (0.0-0.9) mg/dL NT-Pro-B Natriuret Pep (0-125) PG/ML Total Protein 6.5 (6.1-8.0) g/dL Albumin 3.7 (3.5-4.8) g/dL Globulin 2.9 (2.50-4.10) g/dL Albumin/Globulin Ratio 1.20 L (1.3-2.0) mg/g Serum Alcohol (0-10) mg/dL 10/10/17 10/11/17 Range/Units 17:45 04:31 WBC (4.8-10.8) 10^3/uL RBC (4.20-5.40) 10^6/uL Hgb (12.0-16.0) g/dL Hct (37.0-47.0) % MCV (81-99) FL MCH (27-31) PG MCHC (33-37) g/dL RDW Std Deviation (39-50) fL RDW Coeff of Lalita (11.5-14.5) % Plt Count (140-350) 10*3/uL MPV (7.4-12.2) FL Immature Gran % (Auto) (0-5) % Neut % (Auto) (50-80) % Lymph % (Auto) (10-50) % Tyrrell % (Auto) (5-15) % Eos % (Auto) (0-8) % Baso % (Auto) (0-1) % Immature Gran # (Auto) 10*3/UL Neut # (Auto) 10*3/UL Lymph # (Auto) 10*3/uL Tyrrell # (Auto) (0.3-0.8) 10*3/UL Eos # (Auto) 10*3/UL Baso # (Auto) 10*3/UL WBC Morphology Comment (NORM) Plt Morphology Comment (NORM) RBC Morph Comment (NORM) D-Dimer (0.00-0.59) mg/L VBG pH (7.32-7.42) VBG pCO2 (45-55) mmHg VBG HCO3 (22-26) mmol/L VBG Base Excess (-2-2) MMOL/L Sodium 139 (135-145) meq/L Potassium 4.3 (3.8-5.2) meq/L Chloride 108 (98-112) meq/L Carbon Dioxide 26 (23-33) meq/L Anion Gap 5 (5-20) BUN 11 (7-22) mg/dL Creatinine 0.6 (0.50-1.20) mg/dL Estimated GFR > 60 (>60 ml/min/1.73m(2)) BUN/Creatinine Ratio 18.33 (6-20) Glucose 186 H (78-110) mg/dL Calculated Osmolality 291.0 (267-292) mOsm/kg Lactic Acid 0.7 (0.70-2.10) MMOL/L Calcium 8.3 L (8.7-10.7) mg/dL Magnesium (1.6-2.4) mg/dL Total Bilirubin 0.2 L (0.3-1.2) mg/dL AST 19 (8-39) IU/L ALT 18 (9-52) IU/L Alkaline Phosphatase 105 (38-126) IU/L Troponin I (< 0.040) ng/mL C-Reactive Protein (0.0-0.9) mg/dL NT-Pro-B Natriuret Pep (0-125) PG/ML Total Protein 5.2 L (6.1-8.0) g/dL Albumin 2.9 L (3.5-4.8) g/dL Globulin 2.3 L (2.50-4.10) g/dL Albumin/Globulin Ratio 1.20 L (1.3-2.0) mg/g Serum Alcohol (0-10) mg/dL Procedures: [address] [facility] [place] [id number] PH: DD: [phone] FAX: [phone] ~DIAGNOSTIC IMAGING REPORT~ Patient: TONYA SILVA : 1970 Sex: F Age: 46 Exam Name: US Abdomen Limited Exam Date: 10/11/17 Report # : [id number] CPT Code: 33230 EMR/MR #: [id number] Ordering: ABDI VANESSA Admiting: ABDI VANESSA DO Primary: Nima West MD Attending: ABDI VANESSA DO Signed GALLBLADDER AND LIVER ULTRASOUND, 10/11/2017 7:00 AM: Clinical History: Nausea and vomiting. Previous Exam: None at this facility. Technique: Scans are performed through the right upper quadrant in multiple projections. The patient was rolled from side to side and the gallbladder was balloted with the probe to facilitate visualization of small gallstones. The gallbladder is only moderately well distended but has a normal wall thickness. There are no gallstones. The common bile duct measures 4 mm. The pancreas is visualized from the head to the body and is normal. There is hepatomegaly with increased echogenicity and decreased through transmission indicating diffuse fatty infiltration. The right kidney, IVC, and aorta are normal. Readin. The gallbladder is only moderately well distended but is otherwise normal. There is no Hair's sign. 2. Hepatomegaly with fatty infiltration. 3. Normal right kidney, IVC, aorta, and visualized portions of the pancreas. Dictated By: 10/11/17 0902 SERAFIN BLUE MD. Signed By: 10/11/17 0910 SERAFIN BLUE MD. [address] [facility] [place] [id number] PH: DD: [phone] FAX: [phone] ~DIAGNOSTIC IMAGING REPORT~ Patient: TONYA SILVA : 1970 Sex: F Age: 46 Exam Name: XR CXR 1VW Exam Date: 10/10/17 Report # : [id number] CPT Code: 46015 EMR/MR #: [id number] Ordering: ZACHARIAH SOLANO Admiting: Primary: Nima West MD Attending: Signed AP CHEST X-RAY, 10/10/2017 5:17 PM : Clinical History: Dyspnea. Previous Exam: None at this facility. There is no acute soft tissue or bony abnormality. Heart size is normal. Lungs are clear. Mediastinal structures are normal. There are no pulmonary nodules. Reading: Normal chest x-ray. Dictated By: 10/10/171950 SERAFIN BLUE MD. Signed By: 10/10/171955 SERAFIN BLUE MD. Patient Problems - Patient Problem List (1) Sedated due to medication Current Visit: Yes Status: Acute Code(s): R40.4 - Transient alteration of awareness; T50.905A - Adverse effect of unspecified drugs, medicaments and biological substances, initial encounter Category: Medical (2) Hypoxia Current Visit: Yes Status: Resolved Code(s): R09.02 - Hypoxemia Category: Medical (3) Schizophrenia Current Visit: Yes Status: Chronic Code(s): F20.9 - Schizophrenia, unspecified Qualifiers: Schizophrenia type: unspecified Qualified Code(s): F20.9 - Schizophrenia, unspecified Category: Medical (4) Tobacco dependence Current Visit: Yes Status: Chronic Code(s): F17.200 - Nicotine dependence, unspecified, uncomplicated Category: Medical (5) Type 1 diabetes Current Visit: Yes Status: Chronic Code(s): E10.9 - Type 1 diabetes mellitus without complications Qualifiers: Diabetes mellitus complication status: without complication Qualified Code( s): E10.9 - Type 1 diabetes mellitus without complications Category: Medical (6) Seizure disorder Current Visit: Yes Status: Chronic Code(s): G40.909 - Epilepsy, unspecified , not intractable, without status epilepticus Category: Medical
== END 2017-10-11 14:34 | disposition home or self-care (01) ==
LOC: MED/SURG 17:07 → ER 17:07
PROVIDERS: ADMIT Family Medicine; ATTEND Family Medicine

== ENCOUNTER 2017-11-28 13:00 | Inpatient (IN) ==
[2017-11-28] MEDS ORDERED: LIDOCAINE HCL 2 % 10 ML JELLY URO-JECT TOPICAL PRN (13:09)
--- NOTE | 2017-11-28 13:17 | EKG ---
[address] [address] Measurements Intervals [place] Rate: 100 P: 54 MO: 188 QRS: 41 QRSD: 102 T: 49 QT: 338 QTc: 395 Interpretive Statements SINUS TACHYCARDIA POSSIBLE SEPTAL MYOCARDIAL INFARCTION [40+ ms Q WAVE IN V1/V2], OF INDETERMINATE AGE Compared to ECG 10/10/2017 18:16:04 POSSIBLE Myocardial infarct finding now present with axis shift from +11 to +41 (missing R in V1, V2) Sinus rhythm no longer present Electronically Signed On 11-29-17 13:49:18 MDT by Reji Echevarria MD [email or web address]
[2017-11-28 13:35] LABS: ABG BASE EXCESS -1 MMOL/L (-2-2); ABG OXYGEN SATURATION 80 % (90-100); ABG PCO2 53 MMHG (34-38); ABG PO2 49 MMHG (65-75); ALLEN TEST N; COLLECTION SITE R RADIAL
[2017-11-28 13:44] LABS: BILIRUBIN,URINE SMALL (NEG); CLARITY,URINE CLEAR (CLEAR); COLOR,URINE YELLOW (Y); GLUCOSE, URINE (UA) NEGATIVE (NEG); OCCULT BLOOD,URINE NEGATIVE (NEG); PROTEIN,URINE TRACE mg/dl (NEG); UROBILINOGEN,URINE 0.2 EU/dL (0.2)
[2017-11-28 13:45] LABS: BASOPHILS # (AUTO) 0.01 10*3/UL; BASOPHILS % (AUTO) 0.1 % (0-1); EOSINOPHILS # (AUTO) 0.06 10*3/UL; EOSINOPHILS % (AUTO) 0.8 % (0-8); Hematocrit [HCT] 46.4 % (37.0-47.0); Hemoglobin [HGB] 14.9 g/dL (12.0-16.0); LYMPHOCYTES # (AUTO) 1.03 10*3/uL; MEAN CORPUSCULAR HEMOGLOBIN 27.7 PG (27-31); MEAN CORPUSCULAR HGB CONC 32.1 g/dL (33-37); MEAN CORPUSCULAR VOLUME 86.2 FL (81-99); MEAN PLATELET VOLUME 10.6 FL (7.4-12.2); MONOCYTES # (AUTO) 0.22 10*3/UL (0.3-0.8); MONOCYTES % (AUTO) 3.1 % (5-15); NEUTROPHILS # (AUTO) 5.83 10*3/UL; NEUTROPHILS % (AUTO) 81.6 % (50-80); RED BLOOD COUNT 5.38 10^6/uL (4.20-5.40)
[2017-11-28 13:51] LABS: BLOOD UREA NITROGEN 14 mg/dL (7-22); BUN/CREATININE RATIO 23.33 (6-20); SERUM ALBUMIN 3.4 g/dL (3.5-4.8)
[2017-11-28 13:57] LABS: OPIATE SCREEN,URINE NEGATIVE (NEG); URINE SAMPLE TYPE CATH SPECIMEN; URINE SPECIFIC GRAVITY - MAN 1.025
[2017-11-28 13:58] LABS: AMPHETAMINE SCREEN NEGATIVE (NEG); CANNABINOID SCREEN,URINE NEGATIVE (NEG); COCAINE SCREEN NEGATIVE (NEG); METHADONE URINE SCREEN NEGATIVE (NEG); METHAMPHETAMINES SCREEN,URINE NEGATIVE (NEG)
[2017-11-28 14:00] LABS: PLATELET MORPHOLOGY COMMENT NORMAL MORPHOLOGY (NORM); RBC MORPHOLOGY COMMENT NORMAL MORPHOLOGY (NORM); WBC MORPHOLOGY COMMENT NORMAL MORPHOLOGY (NORM)
--- NOTE | 2017-11-28 14:31 | DI ---
XR CXR 1VW,11/28/2017 1:10 PM: Clinical History: Altered mental status Previous Exam: October 10, 2017 Findings: A single frontal radiograph of the chest is obtained, and demonstrate clear lungs. The cardiomediasti num and bony thorax are unremarkable. Overlying EKG leads are seen. Impression: Normal chest.
--- NOTE | 2017-11-28 14:31 | PDOC ---
Altered Mental Status HPI - General Chief Complaint: Altered Mental Status Stated Complaint: Decreased Responsiveness Date Seen by Provider: 11/28/17 Time Seen by Provider: 13:40 - History of Present Illness Initial Comments: This is a 46-year-old woman who I am told the [facility] locally secondary to a long history of psychiatric issues that were uncontrollable. According to report I got from the ambulance patient had been somewhat DOS I'll and lethargic yesterday and all day today has been very obtunded and not cooperative and eventually I felt concerned enough continue to call EMS. EMS responded and found the patient had recent blood pressure but was hypoxic and had altered mental status. Also blood sugar in the 60s and Narcan was given in a nebulized fashion and glucose was administered as well. Patient was brought to the emergency department for evaluation. Here in the emergency department the patient will awaken to noxious stimuli and will answer simple questions such as her name and date of and she is alert enough to be oriented to where she is at and the fact that she feels out of it. She does not elucidate any sort of symptoms that she is having currently however. - Patient Home Medications Home Medications: Home Medications Gabapentin 600 mg PO BID 09/20/17 Ibuprofen 800 mg PO TID PRN 09/20/17 Magnesium Oxide [Magnesium] 400 mg PO DAILY 09/20/17 levETIRAcetam Tab [Keppra Tab] 750 mg PO BID 09/20/17 buprenorphine HCl 2 mg sublingual tablet 4 mg SL TID tab 10/04/17 clozapine 150 mg disintegrating tablet 200 mg PO BID tab 10/04/17 docusate sodium 100 mg capsule 100 mg PO QDAY 10/04/17 duloxetine 30 mg capsule,delayed release 30 mg PO BID 10/04/17 glucagon (human recombinant) 1 mg/mL solution for injection 1 mg IM ONCE insulin glargine (U-100) 100 unit/mL subcutaneous cartridge 22 unit SUBCUT BID 10/04/17 lidocaine 5 % topical patch 1 patch TOPICAL Q24H 10/04/17 multivitamin tablet 1 tab PO QAM 10/04/17 ondansetron HCl 8 mg tablet 8 mg PO BID PRN tab 10/04/17 polyethylene glycol 3350 17 gram/dose oral powder 17 g PO PRN PRN g 10/04/17 prazosin 2 mg capsule 4 mg PO BEDTIME cap 10/04/17 sennosides 8.6 mg-docusate sodium 50 mg tablet 2 tab PO QHS PRN 10/04/17 Oxcarbazepine [Trileptal] 300 mg PO DAILY 10/10/17 pantoprazole 40 mg tablet,delayed release 40 mg PO BID #90 tab 10/11/17 insulin aspart U-100 100 unit/mL subcutaneous pen 4 unit SUBCUT QID #15 ml benztropine 0.5 mg tablet 0.5 mg PO BID 10/18/17 Pen Needle, Diabetic, Safety [Assure Id Pen Needle] 0 amp .ROUTE .MEDSUPPLY 05/13 - Patient Allergies Allergies/Adverse Reactions: Allergies 3 Allergy/AdvReac Type Severity Reaction Status Date / Time ketorolac [From Toradol] Allergy Intermediate SHORTNESS Verified 10/10/17 18:01 OF BREATH prochlorperazine Allergy Intermediate ITCHING Verified 10/10/17 18:01 [From Compazine] Penicillins Allergy Unknown UNKNOWN Verified 10/10/17 18:01 Past Medical History - heen HEENT History: Denies History Cardiovascular History: Denies History Respiratory History: Pneumonia Gastrointestinal History: Denies History Genitourinary History: Denies History Endocrine History: Type 1 Diabetes Musculoskeletal History: Fibromyalgia, Back Injury Prosthesis or Implant: No Additional Musculoskeletal History: degenerative disk disease Neurological History: Seizures Blood Disorders: Denies History Psychiatric History: Depression, Anxiety Disorders History of Sexually Transmitted Diseases: No LMP: 1997 Cancer History: Denies History In Past Year Been Physically Harmed or Verbally Threatened: No History of MDRO: Yes Type of MDRO: Unknown History of Other Communicable Diseases: No Tobacco Use: Current Every Day Smoker In the Past 12 Months, Have Used or Abuse Any Substance: None Previous Surgical History: Yes Type / Date of Surgery: 3 back surgeries, hyst, right knee, right ankle times 4 Significant Family History: No pertinent family hx Past Medical History Reviewed: Reviewed - No Changes ROS - Limitations ROS Limitations: Mental Impairment Cardiovascular: REPORTS: Denies Cardiac Symptoms Gastrointestinal: REPORTS: Denies GI Symptoms Altered Mental Physical Exam - General Appearance General Appearance: POSITIVE: Lethargic - HEENT HEENT: POSITIVE: Head Inspection Nml, Eyes Inspection Nml, PERRL - Neuro/Psych Neurological: NEGATIVE: Seizure Activity, Facial Asymmetry - Neck Neck: POSITIVE: Supple, Non Tender - Respiratory Respiratory: POSITIVE: No Respiratory Distress, Breath Sounds Normal - Abdomen Abdomen: Soft: (All Quadrants), Normal Bowel Sounds: (All Quadrants), Denies Tenderness: (All Quadrants) - Skin Skin: POSITIVE: Normal for Race, No Rash, Warm, Dry - Extremities Extremity: Non-Tender: (All Extremities), Normal ROM: (All Extremities), Normal Inspection: (All Extremities) Altered Mental Status - Results Reviewed By Me Xrays/CTs/US Reviewed: Yes (normal chest) CBC and BMP: 11/28/17 13:30 11/28/17 13:30 Lab Results:: Laboratory Results 3 11/28/17 11/28/17 11/28/17 13:09 13:14 13:30 WBC 7.15 RBC 5.38 Hgb 14.9 Hct 46.4 MCV 86.2 MCH 27.7 MCHC 32.1 L RDW Std Deviation 49.3 RDW Coeff of Lalita 15.8 H Plt Count 174 MPV 10.6 Immature Gran % (Auto) 0 Neut % (Auto) 81.6 H Lymph % (Auto) 14.4 Yancey % (Auto) 3.1 L Eos % (Auto) 0.8 Baso % (Auto) 0.1 Immature Gran # (Auto) 0 Neut # (Auto) 5.83 Lymph # (Auto) 1.03 Yancey # (Auto) 0.22 L Eos # (Auto) 0.06 Baso # (Auto) 0.01 WBC Morphology Comment Normal morphology Plt Morphology Comment Normal morphology RBC Morph Comment Normal morphology D-Dimer ABG pH 7.30 L ABG pCO2 53 H ABG pO2 49 L ABG HCO3 26 ABG Total CO2 27 ABG O2 Saturation 80 L ABG Base Excess -1 Johnny Test N FiO2 2lpm via nc Sodium Potassium Chloride Carbon Dioxide Anion Gap BUN Creatinine Estimated GFR BUN/Creatinine Ratio Glucose Calculated Osmolality Lactic Acid Calcium Total Bilirubin AST ALT Alkaline Phosphatase Total Protein Albumin Globulin Albumin/Globulin Ratio Ur Collection Type Cath specimen Urine Color Yellow Urine Clarity Clear Urine pH 6.0 Ur Specific [place] 1.025 U Specif Grav (Refrac) 1.025 Urine Protein Trace Urine Glucose (UA) Negative Urine Ketones Trace A Urine Occult Blood Negative Urine Nitrate Negative Urine Bilirubin Small Urine Urobilinogen 0.2 Ur Leukocyte Esterase Negative Ur Culture Indicated? Culture not set Urine Opiates Screen Negative Ur Buprenorphine Positive H Ur Oxycodone Screen Negative Urine Methadone Screen Negative Ur Propoxyphene Screen Negative Barbiturate Screen Negative U Tricyclic Antidepress Positive H Phencyclidine Screen Negative Amphetamines Screen Negative U Methamphetamines Scrn Negative Benzodiazepines Screen Negative Cocaine Screen Negative U Marijuana (THC) Screen Negative 3 11/28/17 11/28/17 11/28/17 13:30 13:30 13:30 WBC RBC Hgb Hct MCV MCH MCHC RDW Std Deviation RDW Coeff of Lalita Plt Count MPV Immature Gran % (Auto) Neut % (Auto) Lymph % (Auto) Yancey % (Auto) Eos % (Auto) Baso % (Auto) Immature Gran # (Auto) Neut # (Auto) Lymph # (Auto) Yancey # (Auto) Eos # (Auto) Baso # (Auto) WBC Morphology Comment Plt Morphology Comment RBC Morph Comment D-Dimer 0.50 ABG pH ABG pCO2 ABG pO2 ABG HCO3 ABG Total CO2 ABG O2 Saturation ABG Base Excess Johnny Test FiO2 Sodium 133 L Potassium 4.4 Chloride 104 Carbon Dioxide 23 Anion Gap 6 BUN 14 Creatinine 0.6 Estimated GFR > 60 BUN/Creatinine Ratio 23.33 H Glucose 118 H Calculated Osmolality 277.0 Lactic Acid 0.9 Calcium 8.1 L Total Bilirubin 0.1 L AST 20 ALT 21 Alkaline Phosphatase 107 Total Protein 6.3 Albumin 3.4 L Globulin 2.9 Albumin/Globulin Ratio 1.10 L Ur Collection Type Urine Color Urine Clarity Urine pH Ur Specific [place] U Specif Grav (Refrac) Urine Protein Urine Glucose (UA) Urine Ketones Urine Occult Blood Urine Nitrate Urine Bilirubin Urine Urobilinogen Ur Leukocyte Esterase Ur Culture Indicated? Urine Opiates Screen Ur Buprenorphine Ur Oxycodone Screen Urine Methadone Screen Ur Propoxyphene Screen Barbiturate Screen U Tricyclic Antidepress Phencyclidine Screen Amphetamines Screen U Methamphetamines Scrn Benzodiazepines Screen Cocaine Screen U Marijuana (THC) Screen 3 11/28/17 14:27 WBC RBC Hgb Hct MCV MCH MCHC RDW Std Deviation RDW Coeff of Lalita Plt Count MPV Immature Gran % (Auto) Neut % (Auto) Lymph % (Auto) Yancey % (Auto) Eos % (Auto) Baso % (Auto) Immature Gran # (Auto) Neut # (Auto) Lymph # (Auto) Yancey # (Auto) Eos # (Auto) Baso # (Auto) WBC Morphology Comment Plt Morphology Comment RBC Morph Comment D-Dimer ABG pH 7.31 L ABG pCO2 51 H ABG pO2 63 L ABG HCO3 25 ABG Total CO2 27 ABG O2 Saturation 89 L ABG Base Excess -1 Johnny Test Y FiO2 70 Sodium Potassium Chloride Carbon Dioxide Anion Gap BUN Creatinine Estimated GFR BUN/Creatinine Ratio Glucose Calculated Osmolality Lactic Acid Calcium Total Bilirubin AST ALT Alkaline Phosphatase Total Protein Albumin Globulin Albumin/Globulin Ratio Ur Collection Type Urine Color Urine Clarity Urine pH Ur Specific [place] U Specif Grav (Refrac) Urine Protein Urine Glucose (UA) Urine Ketones Urine Occult Blood Urine Nitrate Urine Bilirubin Urine Urobilinogen Ur Leukocyte Esterase Ur Culture Indicated? Urine Opiates Screen Ur Buprenorphine Ur Oxycodone Screen Urine Methadone Screen Ur Propoxyphene Screen Barbiturate Screen U Tricyclic Antidepress Phencyclidine Screen Amphetamines Screen U Methamphetamines Scrn Benzodiazepines Screen Cocaine Screen U Marijuana (THC) Screen EKG Interpreted/Reviewed By Me:: Yes Patient Care Time - Estimated PCT Patient Care Time (In Minutes): 45 Vital Signs - Recent Vital Signs Vital Signs: Vital Signs (Last 8 hours) Pulse Ox 11/28/17 17:34 91 - VS Reviewed Vital Signs Reviewed: Yes Discharge Clinical Impression: Hypoxia, Metabolic encephalopathy Discharge Disposition: Admit to Inpatient Condition: Fair Date Decision to Admit to Inpatient: 11/28/17 Time Decision to Admit to Inpatient: 14:30
[2017-11-28 15:17] LABS: ABG BASE EXCESS -1 MMOL/L (-2-2); ABG OXYGEN SATURATION 89 % (90-100); ABG PCO2 51 MMHG (34-38); ABG PH 7.31 (7.35-7.45); ABG PO2 63 MMHG (65-75); ALLEN TEST Y; COLLECTION SITE L RADIAL
--- NOTE | 2017-11-28 17:29 | PDOC ---
HPI - History of Present Illness Date of Service: 11/28/17 Time of Service: 18:00 Chief Complaint: Unresponsiveness History of Present Illness: This is a 46 years old female with medical history significant for history of seizure disorder, diabetes on insulin, psychiatric issues that include depression and schizophrenia according to her she lives at a fpc managed by [email or web address]. Apparently she saw her psychiatrist last week and she was prescribed a new medication and started to take it Matty night for the first time. Yesterday morning she was more sleepy than usual according to the case operator from [email or web address]. today she was even worse very hard to wake her up and because of that they called the medics and she was found to be in altered mental status and hypoxic. Blood sugar was in the 60s Narcan was given in a nebulized fashion and glucose was also administered and she was put on oxygen and brought to the ER. They did a venous blood gas and it showed a PCO2 of 53 and a pH of 7.3 she was put on BiPAP however she did not tolerate that so she was put on Vapotherm. She became more responsive and was admitted. Past Medical History Medical History: 1. Multiple psychiatric problems, no right specified. 2. Seizure disorder. 3. Diabetes mellitus, insulin-dependent. 4. Hypertension. 5. Tobacco abuse. 6. Chronic pain syndrome related to back pain. 7. Admission in September 2017 for hypoxia believed to be secondary to medication clonazepam then was discontinued. Surgical History: 1. Knee surgery. 2. Ankle surgery 4. 3. Back surgery 3 Pertinent Family History: She states that she has a family history of diabetes and cancer Past Social History: Smokes. Does not drink alcohol. Currently living in a fpc here managed by [facility] with a long-term plan of moving back to [place] near her brother. She has 1 child that is described as healthy. Tobacco Use: Current Every Day Smoker In the Past 12 Months, Have Used or Abuse Any of the Following Substance: None Medication / Allergies Home Medications: Home Medications 3 Medication Instructions Recorded Confirmed Type Gabapentin 600 mg PO BID 09/20/17 10/18/17 History Ibuprofen 800 mg PO TID PRN 09/20/17 11/28/17 History Magnesium Oxide [Magnesium] 400 mg PO DAILY 09/20/17 11/28/17 History levETIRAcetam Tab [Keppra Tab] 750 mg PO BID 09/20/17 11/28/17 History buprenorphine HCl 2 mg sublingual 4 mg SL TID tab 10/04/17 11/28/17 History tablet clozapine 150 mg disintegrating 200 mg PO BID tab 10/04/17 11/28/17 History tablet docusate sodium 100 mg capsule 100 mg PO QDAY 10/04/17 11/28/17 History duloxetine 30 mg capsule,delayed 30 mg PO BID 10/04/17 11/28/17 History release glucagon (human recombinant) 1 1 mg IM ONCE 10/04/17 11/28/17 History mg/mL solution for injection insulin glargine (U-100) 100 22 unit SUBCUT BID 10/04/17 11/28/17 History unit/mL subcutaneous cartridge lidocaine 5 % topical patch 1 patch TOPICAL Q24H 10/04/17 11/28/17 History multivitamin tablet 1 tab PO QAM 10/04/17 11/28/17 History ondansetron HCl 8 mg tablet 8 mg PO BID PRN tab 10/04/17 11/28/17 History polyethylene glycol 3350 17 17 g PO PRN PRN g 10/04/17 11/28/17 History gram/dose oral powder prazosin 2 mg capsule 4 mg PO BEDTIME cap 10/04/17 11/28/17 History sennosides 8.6 mg-docusate sodium 2 tab PO QHS PRN 10/04/17 11/28/17 History 50 mg tablet Oxcarbazepine [Trileptal] 300 mg PO DAILY 10/10/17 11/28/17 History pantoprazole 40 mg tablet,delayed 40 mg PO BID #90 tab 10/11/17 11/28/17 Rx release insulin aspart U-100 100 unit/mL 4 unit SUBCUT QID #15 ml 10/15/17 11/28/17 Rx subcutaneous pen benztropine 0.5 mg tablet 0.5 mg PO BID 10/18/17 11/28/17 History Pen Needle, Diabetic, Safety 0 amp .ROUTE .MEDSUPPLY 11/28/17 11/28/17 History [Assure Id Pen Needle] Allergies/Adverse Reactions: Allergies 3 Allergy/AdvReac Type Severity Reaction Status Date / Time ketorolac [From Toradol] Allergy Intermediate SHORTNESS Verified 10/10/17 18:01 OF BREATH prochlorperazine Allergy Intermediate ITCHING Verified 10/10/17 18:01 [From Compazine] Penicillins Allergy Unknown UNKNOWN Verified 10/10/17 18:01 Review of Systems - Review of Systems All Systems: Reviewed & No Additional Complaints Except as Stated Exam - Vitals Vital Signs: Vital Signs Temperature 97.5 F Temperature Source Temporal Artery Scan Pulse Rate [Pulse Oximeter] 101 Respiratory Rate 18 Blood Pressure [Left Arm] 152/123 Pulse Ox 96 Oxygen Flow Rate 15 Oxygen Delivery Method Nasal Cannula Height 5 ft 7 in Weight 180 lb - General General Appearance: No Acute Distress, Cooperative Additional General Exam Details: Patient was sleeping but easily arousable. She said she is tired but denying complaint - Head Head Exam: Normal Inspection - Eye Eye Exam: POSITIVE: Normal Appearance - ENT ENT Exam: POSITIVE: Normal Exam - Neck Neck Exam: Normal Inspection - Respiratory Additional Respiratory Exam Details: decreased air entry otherwise clear - Cardiovascular Cardiovascular Exam: POSITIVE: RRR - GI/Abdominal GI/Abdominal Exam: POSITIVE: Normal Bowel Sounds, Non Tender, Non Distended, Soft, No Organomegaly - Rectal Rectal Exam: POSITIVE: Deferred - External Exam: POSITIVE: Deferred Exam: POSITIVE: Deferred - Extremities Additional Extremities Exam Details: No edema noted. Asterixis noted. - Back Back Exam: POSITIVE: Normal Inspection - Neurological Neurological Exam: POSITIVE: Oriented x 3, CN II-XII Intact, No Facial Droop, Speech Intact / Clear, Moves All Extremities Equally Additional Neurological Exam Details: Sleepy but arousable. - Psychiatric Psychiatric Exam: POSITIVE: Normal Affect Results - Labs CBC and BMP: 11/28/17 13:30 11/28/17 13:30 - EKG Data -: EKG Interpreted by Me Rate: Tachycardia (EKG showed sinus tachycardia) - EKG Data EKG Interpretation: Other (EKG showed sinus tachycardia with Q wave in V1 and V2 ) - Imaging Status: Report Reviewed by Me (Chest X ray Normal chest.) Assessment and Plan - Patient Problems (1) Altered mental status Current Visit: Yes Status: Acute Comment: I think likely due to medications. Will modify her medications once I have a complete list. Will put her on IV fluid and provides supportive care. Repeat her blood gas in the morning. Code(s): R41.82 - Altered mental status, unspecified (2) Epilepsy Current Visit: No Status: Chronic Comment: Continue her previous medications Code(s): G40.909 - Epilepsy, unspecified, not intractable, without status epilepticus (3) Type 1 diabetes Current Visit: No Status: Chronic Comment: We'll put on sliding scale and continue with her lantus Code(s): E10.9 - Type 1 diabetes mellitus without complications Qualifiers: Diabetes mellitus complication status: without complication Qualified Code( s): E10.9 - Type 1 diabetes mellitus without complications (4) Hypoxia Current Visit: No Status: Resolved Comment: Probably secondary to the medications. Will provide supportive care for now I think will put also on breathing treatments Code(s): R09.02 - Hypoxemia
[2017-11-28] MEDS ORDERED: Sodium Chloride 0.9% 1,000 ML PRIMARY IV ONE (17:52)
[2017-11-28] MEDS ORDERED: CALCIUM CARBONATE 500 MG (TUMS) CHEWABLE TABLET PO PRN (17:54)
[2017-11-28] MEDS ORDERED: DOCUSATE 100 MG CAPSULE PO PRN (17:54)
[2017-11-28] MEDS ORDERED: LIDOCAINE W/ SODIUM BICARB 0.5 ML SYR SUBD PRN (17:54)
[2017-11-28] MEDS: LEVALBUTEROL HCL 1.25 MG/3 ML NEB SCH (18:37)
[2017-11-28] MEDS: Sodium Chloride 0.9% 1,000 ML PRIMARY IV SCH (19:41)
[2017-11-28] MEDS: LevETIRAcetam Tab 500 MG TABLET PO SCH (20:51)
[2017-11-28] MEDS: Insulin Glargine SoloStar Inj 100 UNIT/ML INSULN.PEN SUBCUT SCH (20:52)
[2017-11-28] MEDS ORDERED: BENZTROPINE 1 MG TABLET PO SCH (21:00)
[2017-11-29] MEDS: OXCARBAZEPINE 600 MG PO SCH ×2 (00:02→09:40)
[2017-11-29] MEDS: LEVALBUTEROL HCL 1.25 MG/3 ML NEB SCH ×4 (00:37→18:39)
[2017-11-29] MEDS: Sodium Chloride 0.9% 1,000 ML PRIMARY IV SCH ×2 (03:12→16:14)
[2017-11-29 05:30] LABS: VENOUS PH 7.39 (7.32-7.42)
[2017-11-29 05:32] LABS: BASOPHILS # (AUTO) 0.01 10*3/UL; BASOPHILS % (AUTO) 0.1 % (0-1); EOSINOPHILS # (AUTO) 0.03 10*3/UL; EOSINOPHILS % (AUTO) 0.2 % (0-8); Hematocrit [HCT] 44.2 % (37.0-47.0); Hemoglobin [HGB] 14.5 g/dL (12.0-16.0); LYMPHOCYTES # (AUTO) 1.04 10*3/uL; MEAN CORPUSCULAR HEMOGLOBIN 27.8 PG (27-31); MEAN CORPUSCULAR HGB CONC 32.8 g/dL (33-37); MEAN CORPUSCULAR VOLUME 84.7 FL (81-99); MEAN PLATELET VOLUME 10.9 FL (7.4-12.2); MONOCYTES # (AUTO) 0.48 10*3/UL (0.3-0.8); MONOCYTES % (AUTO) 3.4 % (5-15); NEUTROPHILS # (AUTO) 12.71 10*3/UL; NEUTROPHILS % (AUTO) 88.9 % (50-80); RED BLOOD COUNT 5.22 10^6/uL (4.20-5.40)
[2017-11-29 05:49] LABS: BLOOD UREA NITROGEN 9 mg/dL (7-22)
[2017-11-29 06:46] LABS: PLATELET MORPHOLOGY COMMENT NORMAL MORPHOLOGY (NORM); RBC MORPHOLOGY COMMENT NORMAL MORPHOLOGY (NORM); WBC MORPHOLOGY COMMENT NORMAL MORPHOLOGY (NORM)
[2017-11-29] MEDS: Insulin Lispro Flexpen 300 UNIT/3 ML INSULN.PEN SUBCUT SCH ×4 (07:50→21:47)
[2017-11-29] MEDS: PANTOPRAZOLE 40 MG TABLET PO SCH (07:53)
[2017-11-29] MEDS: Insulin Glargine SoloStar Inj 100 UNIT/ML INSULN.PEN SUBCUT SCH ×2 (07:53→21:08)
[2017-11-29] MEDS: GABAPENTIN 300 MG CAPSULE PO SCH ×2 (08:37→21:07)
[2017-11-29] MEDS: BENZTROPINE 1 MG TABLET PO SCH ×2 (08:38→21:06)
[2017-11-29] MEDS: LevETIRAcetam Tab 500 MG TABLET PO SCH ×2 (08:38→21:08)
[2017-11-29] MEDS: DULOXETINE 30 MG CAPSULE PO SCH (08:38)
[2017-11-29] MEDS: SUBOXONE SL SCH ×3 (08:39→21:06)
[2017-11-29] MEDS ORDERED: OXCARBAZEPINE 300 MG PO SCH (09:00)
[2017-11-29] MEDS ORDERED: DULOXETINE 30 MG CAPSULE PO SCH (09:00)
[2017-11-29] MEDS: OXCARBAZEPINE 1200 MG PO SCH ×2 (10:23→21:06)
--- NOTE | 2017-11-29 13:24 | DI ---
CT CTA Chest Non-Coronary WWO,11/29/2017 11:59 AM: Clinical History: Hypoxia Previous Exam: Chest x-ray performed November 28, 2017 Findings: Multiple helically acquired CT images are obtained through the chest following the intravenous admini stration of 65 cc of Isovue-370, and demonstrates subsegmental atelectasis in the lung bases. The upper abdomen is unremarkable. There is no infiltrate nor effusion. The pulmonary arteries are normal without filling defect or truncation to suggest pulmonary embolism. The aorta is normal. The thyroid is unremarkable. Skeletal structures are also unremarkable. The thoracic spine is normal. The upper abdomen is unremarkable. Impression: 1. No evidence of pulmonary embolism. 2. Mild airspace disease within the lung bases most likely representing subsegmental atelectasis.
--- NOTE | 2017-11-29 14:27 | PDOC(PROG) ---
Interval History: Doing better today no difficulty breathing and no chest pain no nausea would like a nicotine patch she is a heavy smoker. She lives in a half-way Admitted previously for some CO2 retention most likely from medication most of her medications were held she did refuse BiPAP and Vapotherm Objective : Data - Labs CBC and BMP: 11/29/17 05:20 11/29/17 05:20 Objective : Exam - Head Head Exam: Normal Inspection, Normocephalic, Atraumatic - Respiratory Respiratory Exam: Clear to Auscultation - Bilaterally, Breathing Non Labored, Normal To Percussion, Normal to Percussion and Palpation - Cardiovascular Cardiovascular Exam: RRR, No Murmur, No Clicks, No Gallops, No Rubs, PMI Non- Displaced - GI/Abdominal GI/Abdominal Exam: Normal Bowel Sounds, Non Tender, Non Distended, Soft, No Masses, No Hepatomegaly, No Splenomegaly, No Organomegaly Assessment and Plan - Patient Problems (1) Epilepsy Current Visit: No Status: Chronic Comment: Continue current medication Code(s): G40.909 - Epilepsy, unspecified, not intractable, without status epilepticus (2) Type 1 diabetes Current Visit: No Status: Chronic Comment: Continue current medication Code(s): E10.9 - Type 1 diabetes mellitus without complications Qualifiers: Diabetes mellitus complication status: without complication Qualified Code( s): E10.9 - Type 1 diabetes mellitus without complications (3) Hypoxia Current Visit: No Status: Resolved Comment: CT scan revealed no PE no pneumonia could have mild the airway disease from heavy smoking refused BiPAP or Vapotherm. Most meds held will consult PT OT for generalized weakness continue Xopenex will give trial of steroids most likely this could represent emphysema Code(s): R09.02 - Hypoxemia (4) Altered mental status Current Visit: Yes Status: Acute Comment: This is resolved patient is coherent speaking in full sentences Code(s): R41.82 - Altered mental status, unspecified
[2017-11-29] MEDS: predniSONE Tab 20 MG TAB PO SCH (15:11)
[2017-11-29] MEDS: ACETAMINOPHEN 325 MG TABLET PO PRN (18:34)
[2017-11-29] MEDS ORDERED: NICOTINE 14 MG /DAY PATCH TRANSDERM ONE (21:26)
[2017-11-29] MEDS ORDERED: QUEtiapine Tab 25 MG TAB PO ONE (23:58)
[2017-11-30] MEDS: LEVALBUTEROL HCL 1.25 MG/3 ML NEB SCH ×3 (00:37→12:39)
[2017-11-30] MEDS: ONDANSETRON 4 MG/2 ML VIAL IVP PRN ×2 (00:57→11:13)
[2017-11-30] MEDS: ACETAMINOPHEN 325 MG TABLET PO PRN (03:13)
[2017-11-30 04:24] VITALS: TEMP 97.9
[2017-11-30] MEDS: PANTOPRAZOLE 40 MG TABLET PO SCH (08:00)
[2017-11-30] MEDS: Insulin Lispro Flexpen 300 UNIT/3 ML INSULN.PEN SUBCUT SCH ×2 (08:01→11:44)
[2017-11-30] MEDS: Insulin Glargine SoloStar Inj 100 UNIT/ML INSULN.PEN SUBCUT SCH (08:01)
[2017-11-30 08:53] VITALS: BP 124/73
[2017-11-30] MEDS ORDERED: AZITHROMYCIN 250 MG TABLET PO SCH ×2 (09:15→09:30)
[2017-11-30] MEDS ORDERED: QUEtiapine Tab 25 MG TAB PO SCH (09:30)
[2017-11-30 11:08] LABS: VENOUS PH 7.47 (7.32-7.42)
--- NOTE | 2017-11-30 11:36 | PTI REPORT ---
Thank you for the referral of Barbie Shaikh. She was seen on 11/29/17 for an inpatient evaluation secondary to generalized weakness. SUBJECTIVE: The patient is a 46-year-old female. Prior to visiting with the patient, a chart review was performed. It states that the patient has been living in the [facility] and had a medication change last Sunday for a psychiatric disorder. According to the ER notes, the patient was found with an altered cognitive status. Due to concerns, emergency services were called. When speaking with the patient, the patient reports she is aware that her medication was changed and states she vaguely remembers coming to the hospital. She states she is feeling much better. The patient reports while living at the ch[facility] she was not using any type of assistive device and was performing all transfers and bed mobility and ADLs independently and without the use of oxygen. PAST MEDICAL HISTORY: Past medical history can be found in the patient's medical record. OBJECTIVE FINDINGS: General observations: The patient presents with two liters of oxygen via nasal cannula continuously. Bed mobility: The patient is able to perform all bed mobility independently. Transfers: The patient requires verbal cues for appropriate hand placement for sit to stand transfers. Ambulation: Initially the patient was able to walk with hand hold assist x1 approximately 15 feet before having subjective comments of her legs wanting to give out. This was followed by issuing the patient a front wheeled walker and the patient requiring verbal and visual cues on proper use. The patient was able to ambulate up to 25 feet continuously before requiring a break. She did demonstrate the ability to manipulate the walker appropriately around obstacles. Range of motion: Her range of motion of bilateral lower extremities is within functional limits as she was observed independently donning her socks. Strength: Core strength and lower extremity strength were not formally tested, but she was able to sit edge of bed unsupported as well as perform all transfers and bed mobility with independence to min assist x1, more for safety concerns than strength. ASSESSMENT: Problem List: Decreased safety awareness Decreased endurance Physical Therapy Goals: To be met by discharge from inpatient: Patient will be able to ambulate up to 300 feet for community ambulation with appropriate assistive device. Patient will be able to perform all bed mobility and transfers with stand by assistance safely. TREATMENT PLAN: Patient will be seen B.I.D during the week and one time per day over the weekend as an inpatient to address the above goals and objectives. INITIAL TREATMENT: Treatment today consisted of the initial evaluation followed by having the patient perform bed mobility x2 from supine to edge of bed as well as observing the patient being able to perform ADLs at edge of bed unsupported without difficulty. She ambulated 15 feet x1 with hand hold assist x1 followed by being issued a front wheeled walker and with appropriate instruction ambulating 25 feet x1. She also performed toileting ADLs. Please see occupational therapy note for more details regarding this. Following completion of all therapies, the patient was placed back in bed. AMANDA
[2017-11-30] MEDS: LevETIRAcetam Tab 500 MG TABLET PO SCH (11:43)
[2017-11-30] MEDS: GABAPENTIN 300 MG CAPSULE PO SCH (11:43)
[2017-11-30] MEDS: predniSONE Tab 20 MG TAB PO SCH (11:43)
[2017-11-30] MEDS: BENZTROPINE 1 MG TABLET PO SCH (11:44)
[2017-11-30] MEDS: OXCARBAZEPINE 1200 MG PO SCH (11:44)
--- NOTE | 2017-11-30 11:57 | OTI REPORT ---
Thank you for the referral of Barbie Shaikh. She was seen on 11/29/17 for an occupational therapy inpatient evaluation secondary to generalized weakness. SUBJECTIVE: The patient is a 46-year-old female. Prior to the therapist going to the room, a chart review was completed. Chart review indicated that the patient lives at the skilled nursing here in [place]. The patient has a significant history of mental illness including schizophrenia and depression. She was given a new medication which she started last Sunday night and she has had some issues related to her new medication and she was hospitalized with some hypoxia. The patient reports she is feeling a little bit better this afternoon. She does have the shakes, but she wants to get up and move with therapy. The patient reports at prior level of function she lived at the skilled nursing. She was able to ambulate independently without difficulty. She did have tremors on occasion. She was able to complete all ADLs independently; however, she is feeling kind of weak this afternoon. PAST MEDICAL HISTORY: Past medical history can be found in the patient's medical record. OBJECTIVE FINDINGS: General observations: The patient is currently on two liters of oxygen; however , she was not on oxygen at prior level of function. Bed mobility: The patient demonstrated the ability to complete bed mobility tasks including moving from supine to sitting edge of bed independently and from edge of bed to supine. Activities of daily living: The patient was able to don socks with set up assistance. The patient completed a toileting task on a bedside commode independently for the transfer, pants management, and hygiene. Transfers: The patient performed a sit to stand transfer with contact guard assist for safety. She was given a walker by physical therapy and performed functional ambulation tasks with contact guard assist for safety. The patient did fatigue very quickly and required a rest break within 5 minutes of functional mobility tasks. Range of motion: The patient demonstrated upper extremity range of motion of the shoulder that was 75% of full for shoulder flexion and abduction. Elbow, hand, and wrist bilaterally were within functional limits. Strength: The patient demonstrated upper extremity strength of 4/5. The patient reported she felt very weak in her upper extremities bilaterally. ASSESSMENT: The patient may benefit from skilled occupational therapy to increase endurance , activity tolerance, and ADL functioning. Occupational Therapy Goals: To be met by discharge from inpatient: Patient will increase activity tolerance/standing balance to stand at the sink x10 minutes to complete standing grooming tasks. Patient will complete entire dressing routine to include task set up, lower extremity dressing, and upper extremity dressing with zero losses of balance and following safety precautions. Patient will participate in bilateral upper extremity strengthening tasks and will increase bilateral upper extremity strength by one manual muscle grade. TREATMENT PLAN: Patient will be seen B.I.D during the week and one time per day over the weekend as an inpatient to address the above goals and objectives. INITIAL TREATMENT: Treatment today consisted of the initial evaluation activities only. Following treatment session, the patient was left in bed with call light and oxygen in place. AMANDA
--- NOTE | 2017-11-30 12:05 | DCSUMMARY ---
Hospitalization Summary Hospital Course: Final Discharge Diagnosis: Current Visit Problems Problem Status Onset Code Altered mental status Acute R41.82 Hypoxia Acute R09.02 Metabolic encephalopathy Acute G93.41 Diagnostic Data, Laboratory Data, and Procedures of Signifigance: CBC and BMP 11/29/17 05:20 11/29/17 05:20 History and Physical pertinent to Admission: Course of Hospitalization: This very nice 46-year-old female with multiple psychiatric diagnoses on multiple psychiatric meds. Under the care of Dr. Giraldo out at [id number] and lives in a correction. Was brought here for some altered mental status and was found to be hypoxic with the elevated CO2 and slightly diminished air pH. Most of her medications were held during the hospitalization. CT scan of her chest revealed no PE no pneumonia. On physical exam she had few wheezes. And may be on CT some airway disease. She was treated with the antibiotic steroids and inhalers for her mild COPD exacerbation. She is a heavy smoker of 2 packs a day I did call Dr. Giraldo I' ll her psychiatrist he wants her to continue her current medications he also made me aware that she has inhaled the 2 bottles of air freshener just before this happened this most likely might cause some airway disease exacerbation which causes her CO2 retention which is now within normal limits for 2 days patient is stable coherent not confused and is ready and to be discharged to home On the date of discharge, the patient was examined: Gen.: No acute distress, alert, nontoxic Heart: Regular rate and rhythm, no murmurs, clicks, gallops, or rubs Lungs: Clear to auscultation bilaterally, breathing is nonlabored Abdomen/GI: Normal tones on auscultation, soft, nontender, nondistended Musculoskeletal/extremities: No clubbing, cyanosis, or edema Vitals reviewed and are listed below Vital Signs (24 hrs) Temp Pulse Pulse Resp BP Pulse Ox 11/30/17 08:51 66 18 124/73 94 11/30/17 06:24 85 12 11/30/17 06:23 83 12 95 11/30/17 04:30 94 11/30/17 04:22 97.9 F 67 18 107/81 95 11/30/17 03:00 63 11/30/17 00:38 60 16 95 11/30/17 00:37 64 16 94 11/30/17 00:04 97.8 F 72 20 141/77 96 11/29/17 23:00 60 11/29/17 20:41 98.0 F 84 22 132/82 94 11/29/17 19:00 71 11/29/17 18:40 65 14 95 11/29/17 18:39 68 16 94 11/29/17 16:20 97.6 F 80 18 134/73 99 11/29/17 15:00 86 11/29/17 13:13 82 16 11/29/17 13:12 80 16 94 Assessment and Plan: 1. As per discharge assessments above 2. Disposition: Home with [facility] and counseling her on trying to stop smoking she is not interested at present time for any help 3. Condition on discharge, stable and improved. 4. Diet: Diabetic diet 5. Activities: resume normal activities 6. Follow-Up: Dr. Giraldo I'll her psychiatrist which we'll review her meds as well 1. PCP 2. 7. Medications at the Time of Discharge: Home Medications 3 Medication Instructions Recorded Confirmed Type Gabapentin 600 mg PO BID 09/20/17 11/29/17 History Magnesium Oxide [Magnesium] 400 mg PO DAILY 09/20/17 11/28/17 History levETIRAcetam Tab [Keppra Tab] 750 mg PO BID 09/20/17 11/28/17 History docusate sodium 100 mg capsule 100 mg PO QDAY 10/04/17 11/28/17 History duloxetine 30 mg capsule,delayed 90 mg PO DAILY 10/04/17 11/29/17 History release insulin glargine (U-100) 100 22 unit SUBCUT BID 10/04/17 11/28/17 History unit/mL subcutaneous cartridge lidocaine 5 % topical patch 1 patch TOPICAL Q24H 10/04/17 11/28/17 History multivitamin tablet 1 tab PO QAM 10/04/17 11/28/17 History ondansetron HCl 8 mg tablet 8 mg PO BID PRN tab 10/04/17 11/28/17 History polyethylene glycol 3350 17 17 g PO PRN PRN g 10/04/17 11/28/17 History gram/dose oral powder prazosin 2 mg capsule 4 mg PO BEDTIME cap 10/04/17 11/28/17 History sennosides 8.6 mg-docusate sodium 2 tab PO QHS PRN 10/04/17 11/28/17 History 50 mg tablet Oxcarbazepine [Trileptal] 1,200 mg PO BID 10/10/17 11/29/17 History pantoprazole 40 mg tablet,delayed 40 mg PO BID #90 tab 10/11/17 11/28/17 Rx release insulin aspart U-100 100 unit/mL 4 unit SUBCUT QID #15 ml 10/15/17 11/28/17 Rx subcutaneous pen benztropine 0.5 mg tablet 0.5 mg PO BID 10/18/17 11/28/17 History Pen Needle, Diabetic, Safety 0 amp .ROUTE .MEDSUPPLY 11/28/17 11/28/17 History [Assure Id Pen Needle] Buprenorphine HCl/Naloxone HCl 1 ea SL TID 11/29/17 11/29/17 History [Suboxone 4 mg-1 mg Sl Film] Clozapine 200 mg PO BID 11/29/17 11/29/17 History RisperiDONE Tab [Risperdal Tab] 1 mg PO BID 11/29/17 11/29/17 History Azithromycin [Zithromax] 500 mg PO DAILY #2 tab 11/30/17 Rx 8. Time, care, counseling and coordination of care for this discharge is greater than 30 minutes. Exam - Vitals Vital Signs: Vital Signs Temperature 97.9 F Temperature Source Temporal Artery Scan Pulse Rate [Pulse Oximeter] 66 Pulse Rate 85 Respiratory Rate 18 Blood Pressure [Left Arm] 124/73 Pulse Ox 94 Oxygen Flow Rate 2 Oxygen Delivery Method Nasal Cannula Height 5 ft 7 in Weight 189 lb 11.2 oz Patient Problems - Patient Problem List (1) Epilepsy Current Visit: No Status: Chronic Code(s): G40.909 - Epilepsy, unspecified, not intractable, without status epilepticus Category: Medical (2) Type 1 diabetes Current Visit: No Status: Chronic Code(s): E10.9 - Type 1 diabetes mellitus without complications Qualifiers: Diabetes mellitus complication status: without complication Qualified Code( s): E10.9 - Type 1 diabetes mellitus without complications Category: Medical (3) Hypoxia Current Visit: No Status: Resolved Code(s): R09.02 - Hypoxemia Category: Medical (4) Altered mental status Current Visit: Yes Status: Acute Code(s): R41.82 - Altered mental status, unspecified Category: Medical
[2017-11-30] MEDS: DULOXETINE 30 MG CAPSULE PO SCH (12:26)
[2017-11-30] MEDS: SUBOXONE SL SCH (12:26)
[2017-11-30 12:41] VITALS: RESP 12; O2SAT 86
[2017-12-01] MEDS ORDERED: DULOXETINE 30 MG CAPSULE PO SCH (09:00)
== END 2017-11-30 14:10 | disposition home or self-care (01) | DRG 71 ==
LOC: ER 13:00 → MED/SURG 17:08
PROVIDERS: ADMIT Internal Medicine; ATTEND Internal Medicine